=== PATIENT | male | born 1990 | race Hispanic/Latino ===

== ENCOUNTER 2022-05-12 11:56 | Emergency (ER) | payer OTHER, SELFPAY ==
--- NOTE | ~2022-05-12 | XR_ITS ---
XR hand RT min 3V DATE: 05/12/2022 12:46 INDICATION: Hand smashed in car door TECHNIQUE: 3 views COMPARISON: None FINDINGS: Old healed fracture deformities of the proximal fourth and fifth metacarpal bones. No recent fracture or dislocation, periosteal reaction or bone destruction. IMPRESSION: No recent fracture or dislocation Reviewed, dictated and finalized at location B.
--- NOTE | ~2022-05-12 | XR_ITS ---
XR hand LT min 3V DATE: 05/12/2022 12:46 INDICATION: Hand smashed in car door TECHNIQUE: 3 views of left hand COMPARISON: None FINDINGS: No fracture or dislocation, periosteal reaction or bone destruction. Joint spaces are prese rved. IMPRESSION: Negative Reviewed, dictated and finalized at location B. IMPRESSION: Negative
--- NOTE | 2022-05-12 12:21 | ED.UPPEXIN ---
HPI - Extremity Injury (Upper) General Chief Complaint: Extremity Injury, Upper Stated Complaint: cut left 3rd finger/right hand injury Time Seen by Provider: 05/12/22 12:21 Source: patient and american sign language interpreter Mode of arrival: ambulatory Limitations: no limitations History of Present Illness HPI narrative: Brian is a 32-year-old male patient presenting to the clinic today with complaints of a bilateral hand pain with a cut to his left 3rd finger. He reports he will was hit by a door as it was opening injuring his bilateral hands. Reports more pain to the right hand however he has a cut to the left 3rd finger that is bleeding. Tetanus shot is of today as patient had 6 months ago Related Data Home Medications Medication Instructions Recorded Confirmed No Home Medications 05/12/22 05/12/22 Allergies Allergy/AdvReac Type Severity Reaction Status Date / Time No Known Allergies Allergy Verified 05/12/22 12:29 Review of Systems Review of Systems: Pertinent positives per HPI. Patient denies any fever, chills, rash, headache, visual changes, dizziness, cough, runny nose, sore throat, shortness of breath, chest pain, palpitations, nausea, vomiting, diarrhea, constipation, abdominal pain, or any urinary issues. PMFSH Comments At the time of my signature, I reviewed and agree with the nursing past medical, surgical, social, and family history. There is no relevant family history pertinent to the patient complaint. Exam Narrative: General: Well-developed, well nourished, in no apparent distress Head: Normocephalic, atraumatic. Cardio: Regular rate and rhythm, s1 and s2 normal, no murmur appreciated. Resp: Clear to auscultation bilaterally, no rhonchi, rales, wheezing or rubs. Musculoskeletal: No deformity, skin abrasion to the left 3rd dorsal proximal phalanx, tender to palpation over the left 3rd joint in the dorsal hand and over the dorsal right hand, limited range of motion due to pain, muscle strength strong and equal, peripheral pulse strong, no edema, no cyanosis, normal gait and station Course Course Emergency Course: Portions of this record may have been created with voice recognition software. Level of Care: Express Care Visit Vital Signs Vital signs: Vital Signs Temperature 36.6 C 05/12/22 12:28 Pulse Rate 72 05/12/22 12:28 Respiratory Rate 14 05/12/22 12:28 Blood Pressure 123/63 05/12/22 12:28 Pulse Oximetry 100 05/12/22 12:28 Oxygen Delivery Room Air 05/12/22 12:28 Temperature 36.6 C 05/12/22 12:28 Pulse Rate 72 05/12/22 12:28 Respiratory Rate 14 05/12/22 12:28 Blood Pressure 123/63 05/12/22 12:28 Pulse Oximetry 100 05/12/22 12:28 Oxygen Delivery Room Air 05/12/22 12:28 Vital signs reviewed MDM - Extremity Injury (Upper) MDM Narrative Medical decision making narrative: At the time of visit patient is resting comfortably on exam table. X-rays were completed of bilateral hands and were negative for any sign of acute fracture or malalignment. I suspect patient has soft tissue injury with a abrasion to the left 3rd dorsal proximal finger. Supportive measures were discussed with the patient he voiced understanding discharge instructions and agrees to treatment plan. Differential Diagnosis Differential diagnosis: Likely finger sprain, dislocation of finger, fracture of hand and other (Soft tissue injury, left 3rd finger abrasion) Discharge Plan Discharge Clinical Impression: Soft tissue injury, Abrasion of skin of finger of left hand Patient Disposition: Home, Self-Care Condition: Stable Instructions: Antibiotic Form, Hand Sprain (ED), Abrasion (ED) Additional Instructions: Mantener la herida limpia y seca Puede aplicar un cullen?ento antibi?breanne triple a la herida dos veces al d?a x 2-3 d?as. Puede mantenerse cubierto con curitas x 2 d?as y luego dejarse al aire kelsey a menos que est? drenando Las radiograf?as de eran bilaterales fueron negativa
[2022-05-12 12:28] VITALS: BP 123/63; PULSE 72; RESP 14; TEMP 36.6; O2SAT 100
[2022-05-12] MEDS: KETOROLAC (*BKC) 60 MG/2 ML VIAL IM (13:14)
--- NOTE | 2022-05-12 13:17 | PC.NURSE ---
1315- rn document improvement specialist César [id number]
== END 2022-05-12 13:28 | disposition home or self-care (01) ==
PROVIDERS: Emergency Provider Nurse Practitioner Family
DX: S60.413A Abrasion of left middle finger, initial encounter (principal); S69.91XA Unspecified injury of right wrist, hand and finger(s), initial encounter; S69.92XA Unspecified injury of left wrist, hand and finger(s), initial encounter; V48.3XXA Unspecified car occupant injured in noncollision transport accident in nontraffic accident, initial encounter
CPT/HCPCS: 73130; 96372; 99204; G0463; J1885

== ENCOUNTER 2022-05-15 12:33 | Emergency (ER) | payer OTHER, SELFPAY ==
[2022-05-15 12:37] VITALS: BP 130/66; PULSE 90; RESP 18; TEMP 36.8; O2SAT 99
--- NOTE | 2022-05-15 13:19 | ED.UPPEXIN ---
HPI - Extremity Injury (Upper) General Chief Complaint: Extremity Injury, Upper Stated Complaint: re-check Time Seen by Provider: 05/15/22 12:47 History of Present Illness HPI narrative: 32-year-old Guamanian-speaking male presents to the emergency room for reevaluation of bilateral hand pain. Patient is accompanied by family member who is acting as diplomatic interpreter. Patient states that several days ago at work he was holding onto a door when a coworker pushed the door closed slamming the door onto his hands. Patient is complaining of pain to the dorsal side of his right and left hand. Patient was seen in urgent care following the incident, and had x-rays obtained. X-ray showed no fractures. Patient was sent home with both of his hands and Alberto bandages. Today states the pain has not improved. Related Data Allergies Allergy/AdvReac Type Severity Reaction Status Date / Time No Known Allergies Allergy Verified 05/15/22 12:42 Review of Systems Review of Systems: CONSTITUTIONAL: Denies fever, chills, or sweats. EYES: Denies visual changes, redness, or discharge. ENT: Denies rhinorrhea, congestion, sore throat, or otalgia. CARDIOVASCULAR: Denies chest pain, palpitations, or edema. RESPIRATORY: Denies cough or dyspnea. GASTROINTESTINAL: Denies abdominal pain, nausea, vomiting, or diarrhea. GENITOURINARY: Denies dysuria or hematuria. SKIN: Denies rash or itching. MUSCULOSKELETAL: Reports bilateral hand pain NEUROLOGIC: Denies headache, numbness, dizziness, or weakness. PSYCHIATRIC: Denies anxiety or depression. Exam Narrative: GENERAL: Well-appearing, well-nourished, no physical limitations, and in no acute distress. HEAD: Normocephalic, atraumatic. EYES: Conjunctivae normal, PERRLA and EOMI. CHEST: Clear to auscultation. No respiratory distress. No wheezes rales or rhonchi. HEART: Regular rate and rhythm. No murmur heard. Normal peripheral pulses. EXTREMITIES: right hand: +TTP and STS over the 4th-5th metacarpals, LROM, neurovascular is intact distally. Left hand: +TTP with no STS over the 3rd metacarpal, FROM, neurovascular is intact distally SKIN: Warm, dry, no rash. No noted wounds NEURO: No focal deficits. Alert and oriented x3. MAEW. CN's II-XI intact bilaterally, normal gait PSYCH: Cooperative. Normal mood and affect. Course Vital Signs Vital signs: Vital Signs Temperature 36.8 C 05/15/22 12:37 Pulse Rate 90 05/15/22 12:37 Respiratory Rate 18 05/15/22 12:37 Blood Pressure 130/66 05/15/22 12:37 Pulse Oximetry 99 05/15/22 12:37 Temperature 36.8 C 05/15/22 12:37 Pulse Rate 90 05/15/22 12:37 Respiratory Rate 18 05/15/22 12:37 Blood Pressure 130/66 05/15/22 12:37 Pulse Oximetry 99 05/15/22 12:37 Discharge Plan Discharge Clinical Impression: Contusion of hand, right, Contusion of hand, left Patient Disposition: Home, Self-Care Condition: Stable Instructions: Antibiotic Form, Contusion in Adults (ED) Prescriptions: New celecoxib [Celebrex] 200 mg capsule 200 mg PO BID Qty: 20 0RF Follow-up/Referrals: Milind Wilkins MD [Physician] - UNKNOWN,DOCTOR [Primary Care Provider] - Stand Alone Forms: Work/School Release IP Time of Disposition: 13:23
== END 2022-05-15 13:37 | disposition home or self-care (01) ==
PROVIDERS: Emergency Provider Nurse Practitioner Family
DX: S60.221A Contusion of right hand, initial encounter (principal); S60.222A Contusion of left hand, initial encounter; W23.2XXA Caught, crushed, jammed or pinched between a moving and stationary object, initial encounter
CPT/HCPCS: 99283

== ENCOUNTER 2022-06-09 12:20 | Outpatient (CLI) | payer OTHER, SELFPAY ==
--- NOTE | ~2022-06-09 | XR_ITS ---
XR wrist RT min 3V DATE: 06/09/2022 12:50 INDICATION: Wrist pain TECHNIQUE: 4 views COMPARISON: 05/12/2022 right-handed FINDINGS: Old healed fracture deformities of the bases of the fourth and fifth metatarsal carpal bone s again noted. No recent fracture or dislocation of the right wrist. Wrist joint spaces appear well preserved. No er osive change or chondrocalcinosis. IMPRESSION: No significant abnormality right wrist Old healed fracture deformities of the bases of the fourth and fifth metacarpal bones Reviewed, dictated and finalized at location B.
== END 2022-06-09 12:21 | disposition home or self-care (01) ==
PROVIDERS: Visit Provider Plastic Surgery
DX: M25.531 Pain in right wrist (principal)
CPT/HCPCS: 73110

== ENCOUNTER 2022-08-18 11:00 | Outpatient (RCR) | payer OTHER, SELFPAY ==
--- NOTE | 2022-06-16 13:42 | OTOPEVAL1 ---
Assessment and note entered by Curt Santa, MARIO ALBERTO/Yosi, CHT Evaluation Information Assessment Status Evaluation Diagnosis Right hand contusion Onset 05/13/22 Subjective Information Patient reporting arm/hand pain that occurred after a sliding door was accidently closed on his hand. He states he has been trying to move his hand and squeeze a ball and this has helped his hand pain some. Reporting most of his pain is located at the lateral elbow. He frequently drops items with this arm and has difficulties with gripping. He works at a [employer] yard, cleaning out cars; manual labor. Patient here today with his friend, Bert, who interprets for him as he is Pashto speaking. Offered interpretation services and he declined. Reported Pain Level Pain Score 4: Self Report Additional Pain Score Comments Patient reporting 4/10 pain at rest. He states he does get up to 10/10 at times. The pain starts in the elbow and radiates down to the hand. Assessment OT Clinical Summary Patient referred to outpatient OT with dx of right hand contusion after a door closed on his hand. He has residual pain which is causing him to drop items and the pain limits his functional use during ADLs. Testing today revealing pain and inflammation of the dorsal hand, lateral epicondyle, radial tunnel. (+) Radial nerve tension test on the right. Applied hot pack to the patient's arm and instructed in ROM HEP and he reports much improved flexibility and less pain following heat treatment. Plan moving forward - Patient to complete this HEP x1 week and will have him follow up next , 06/24, to assess readiness for discharge and ultimately readiness to return to work. Plan of Care Interventions Therapeutic Exercise,Manual Therapy,Therapeutic Activities,Hot Pack/Cold Pack,Ultrasound,Paraffin OT Services Indicated Yes Treatment Frequency and 1x/week for 3 weeks Duration These treatments will address the objective and functional deficits as defined above. The patient will be advanced safely and appropriately in order for the patient to progress towards his/her prior level of function. Additional exercises will be introduced and as well as a comprehensive home exercise program upon discharge, if needed, ?to ensure carryover of functional gains achieved in the clinic. This treatment plan has been reviewed and agreement upon by the patient.
--- NOTE | 2022-07-05 12:23 | OTOPPROG ---
Assessment and note entered by Curt Santa, MARIO ALBERTO/Yosi, CHT Evaluation Information Assessment Status Progress Diagnosis Right hand contusion Onset 05/13/22 Subjective Information Patient reporting arm/hand pain that occurred after a door was accidently closed on his hand. Initially he was reporting most of his pain is located at the lateral elbow. He received a cortisone injection here last Tuesday and he states his elbow no longer is painful. He reports 8/10 pain in the hand. Palpation of the hand there is a bony prominence at the base of metacarpals IV and V. With weight bearing through a flat hand and extended wrist he reports sharp increase in pain in this area. He has difficulties trying to adduct the small finger. We have been completing right elbow, forearm, and wrist ROM and shovel loader operator strengthening with putty. He is compliant with all materials. He reports no changes in the functional use of the arm. So far the only progress is reduced pain in the elbow, which he attributes this to the cortisone injection. He works at a [employer] yard, cleaning out cars; manual labor. Off work until his next MD appt on 07/20. Patient here today with his friend, Bert, who interprets for him as he is Armenian speaking. Offered interpretation services and he declined. Assessment OT Clinical Summary Patient referred to outpatient OT with dx of right hand contusion after a door closed on his hand. He has residual hand pain which is causing him to drop items and the pain limits his functional use during ADLs. Progress noted with reduced pain in the elbow. He is reporting pain just localized to the right hand, points to the base of metacarpals IV and V. He is having difficulty tolerating gripping items and especially with weight bearing through that hand. Will continue to see the patient to treat pain and to facilitate optimal functional use of the right UE. Plan of Care Interventions Therapeutic Exercise,Manual Therapy,Therapeutic Activities,Hot Pack/Cold Pack,Ultrasound,Paraffin OT Services Indicated Yes Treatment Frequency and 1x/week for 3 weeks Duration These treatments will address the objective and functional deficits as defined above. The patient will be advanced safely and appropriately in order for the patient to progress towards h
--- NOTE | 2022-07-29 10:19 | OTOPPROG ---
Assessment and note entered by Curt Santa, MARIO ALBERTO/Yosi, CHT Evaluation Information Assessment Status Progress Diagnosis Right hand contusion Onset 05/13/22 Subjective Information Patient reporting arm/hand pain that occurred after a door was accidently closed on his hand. He continues to report 9/10 regularly. He reports his hand is located on the dorsum of the hand and radiates up to the lateral elbow and now is reporting pain all the way up to the shoulder. He reports his pain can get down to 1/10 when he takes ibuprofen, but he only takes this at night as he doesn't want to take pills all the time . He is using heat and ice at home for pain relief also. He is compliant with with ROM exercises and using the putty. He comes in today wearing a wrist cock up brace that he's been wearing for ~4 days. He states this has helped with the pain also. Severe 10/10 pain with resisted wrist extension. He is able to move the UE through normal ROM, but reporting pain through the entire extensor unit on the dorsum of the hand to the elbow. Patient here today with his friend, Bert, who interprets for him as he is Croatian speaking. Offered interpretation services and he declined. Assessment OT Clinical Summary Patient referred to outpatient OT with dx of right hand contusion after a door closed on his hand. He has residual hand pain which is causing him to drop items and the pain limits his functional use during ADLs. This pain continues to radiate up to the elbow and he is now reporting intermittent pain all the way up to the shoulder. Home program includes postural exercises/stretches, ROM of all joints of the right UE, and putty HEP. Pain management at home includes massage and use of heat/ice. He has been immobilizing the wrist for a few days also. Progress noted with reduced pain when completing ROM. Will continue to see the patient to treat pain and to facilitate optimal functional use of the right UE. Plan of Care Interventions Therapeutic Exercise,Manual Therapy,Therapeutic Activities,Hot Pack/Cold Pack,Ultrasound,Paraffin OT Services Indicated Yes Treatment Frequency and 1x/week for 3 weeks Duration These treatments will address the objective and functional deficits as defined above. The patient will b
--- NOTE | 2022-08-18 12:41 | OTOPPROG ---
Assessment and note entered by Curt Santa, MARIO ALBERTO/Yosi, CHT Evaluation Information Assessment Status Progress Diagnosis Right hand contusion Onset 05/13/22 Subjective Information Patient reporting arm/hand pain that occurred after a sliding door was accidently closed on his hand. He reports his pain is located on the dorsum of the hand and radiates up to the lateral elbow and all the way up to the shoulder. He does report reduced pain, as low as 0-1/10 after therapy sessions. He is using heat and ice at home for pain relief. He is compliant with with ROM exercises and using the putty. He is reporting improved UE use with lifting. For instance, today he was able to lift 20 lb. box from floor to table height and back to the floor for several reps. He states he is using that hand at home to do some strengthening with a 3 lb. dumbbell. He is using his hand to use his phone now. He did not have a sharp increase in pain with resisted wrist extension today. He is able to move the UE through normal ROM. Upper limb tension test for the radial nerve is positive, but overall he is moving through more ROM and not needing to stop due to pain. 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 Patient here today with his friend, Bert, who interprets for him as he is Bermudian speaking. Offered interpretation services and he declined. Assessment OT Clinical Summary Patient referred to outpatient OT with dx of right hand contusion after a door closed on his hand. He has residual UE pain which limits his functional use with gripping and lifting. This pain continues to radiate up to the elbow and he is now reporting intermittent pain all the way up to the shoulder. Home program includes postural exercises/stretches, ROM of all joints of the right UE, and putty HEP. Pain management at home includes massage and use of heat/ice. Progress noted with reduced pain and improved functional use. He continues to be limited with use, however, due to residual pain and weakness. Continued skilled OT indicated to continue to facilitate reduced pain and improved functional strength. Plan of Care Interventions Therapeutic Exercise,Manual Therapy,Therapeutic Activities,Hot Pack/
--- NOTE | 2022-09-02 08:50 | PCOTNOTE ---
Patient did not show up for scheduled appointment this date. Called patient's friend/staff interpreter and left a voicemail regarding the missed appointment and asked that they call back to let me know if they'll be making the appointment on the . Per Dr. Wilkins's last note, the patient was released to go back to work.
--- NOTE | 2022-09-07 09:45 | OTOPDC ---
Assessment and note entered by Curt Santa, OTR/L, CHT Discharge Note 09/07/22 OT Clinical Summary Zhang has not returned for therapy appointments since his most recent reassessment on 08/18/22. We have been unable to get a hold of him. Please refer to progress note dated 08/18/22 for latest update on patient's progress. Discharging today from therapy.
== END 2022-09-07 12:52 | disposition home or self-care (01) ==
LOC: ANHOT 11:00
PROVIDERS: Visit Provider Plastic Surgery
DX: S60.221D Contusion of right hand, subsequent encounter (principal)
CPT/HCPCS: 97018; 97035; 97110; 97140; 97166; 99199

== ENCOUNTER 2022-08-26 09:09 | Outpatient (CLI) | payer OTHER, SELFPAY ==
--- NOTE | 2022-08-26 11:00 | NEURO_ITS ---
Impression: # Complains of pain on the dorsum of hand. # No Carpal Tunnel Syndrome or ulnar neuropathy. # Needle/EMG exam not requested. # Clinical correlation recommended. Nerve Conduction Studies Anti Sensory Summary Table Stim Site NR Peak (ms) P-T Amp (?V) Site1 Site2 Delta-P (ms) Dist (cm) Prieto (m/s) Right Median Anti Sensory (2-3nd Digit) Wrist 2.7 40.9 Wrist 2-3nd Digit 2.7 14.0 52 Wrist 2.6 33.4 Wrist 2-3nd Digit 2.7 14.0 52 Right Radial Anti Sensory (Base 1st Digit) Wrist 2.1 23.2 Wrist Base 1st Digit 2.1 0.0 Right Ulnar Anti Sensory (5th Digit) Wrist 2.4 39.3 Wrist 5th Digit 2.4 14.0 58 Motor Summary Table Stim Site NR Onset (ms) O-P Amp (mV) Site1 Site2 Delta-0 (ms) Dist (cm) Prieto (m/s) Right Median Motor (Abd Poll Brev) Wrist 2.9 4.0 Elbow Wrist 6.0 30.0 50 Elbow 8.9 1.5 Right Ulnar Motor (Abd Dig Minimi) Wrist 2.5 5.0 A Elbow Wrist 5.1 29.0 57 A Elbow 7.6 3.5 F Wave Studies NR F-Lat (ms) L-R F-Lat (ms) Right Median (Mrkrs) (Abd Poll Brev) 28.97 Right Ulnar (Mrkrs) (Abd Dig Min) 27.60 MTDD
--- NOTE | 2022-08-26 14:15 | NEURO_ITS ---
Impression: # Complains of pain in right hand dorsum. # No Carpal Tunnel Syndrome or ulnar neuropathy. # Needle/EMG exam not requested. # Clinical correlation recommended. MTDD
== END 2022-08-26 09:10 | disposition home or self-care (01) ==
LOC: ANHNEURO 09:11
PROVIDERS: Visit Provider Plastic Surgery
DX: R20.2 Paresthesia of skin (principal)
CPT/HCPCS: 95909

== ENCOUNTER 2022-09-22 09:45 | Outpatient (RCR) | payer OTHER, SELFPAY ==
--- NOTE | 2022-09-17 11:51 | OTOPEVAL1 ---
Assessment and note entered by Curt Santa, OTR/L, CHT Evaluation Information Assessment Status Evaluation Diagnosis (R) hand contusion Onset 05/13/22 Subjective Information Patient has been experiencing right UE pain when his hand was closed in a door. He has been working with therapy since the end of May. We have made progress with functional ROM and strength, however he continues to have severe amounts of pain with UE use. He has been back at work, working 1/2 days. After working his pain increases to 15 to 20/10 . 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 He did receive an injection to the lateral epicondyle at his recent appointment 09/10. His doctor at work dishcharged him to return to full duty also. He occasionally takes ibuprofen for the pain and does experience 0 /10 pain when doing this, but with any arm use the pain increases. Reported Pain Level Pain Score 8: Self Report Assessment OT Clinical Summary Patient presents for continuation of care for right arm pain. Since beginning treatment in May , the patient has made progress with reduced pain and improved functional use, however he continues to report high amounts of pain when trying to use his arm for any strenuous tasks. The pain is localized to the lateral elbow/forearm and appears to be consistent with lateral epicondylitis. He also has (+) radial nerve tension test. Skilled OT indicated for use of modalities, manual therapy, exercise, and HEP instruction to facilitate optimal functional use of the right UE. Plan of Care Interventions Therapeutic Exercise,Manual Therapy,Therapeutic Activities,Hot Pack/Cold Pack,Paraffin OT Services Indicated Yes Treatment Frequency and 1x/week for 4 weeks Duration These treatments will address the objective and functional deficits as defined above. The patient will be advanced safely and appropriately in order for the patient to progress towards his/her prior level of function. Additional exercises will be introduced and as well as a comprehensive home exercise program upon discharge, if needed, ?to ensure carryover of functional gains achieved in the clinic. This treatment plan has been reviewed and agreement upon by the patient.
--- NOTE | 2022-09-17 11:51 | OPREHPOC ---
Outpatient Therapy Plan of Care This is a Multidisciplinary Plan of Care that may contain components documented by all disciplines (PT, OT, and ST.) OT Problem 1 OT Problem #1 Knowledge Deficit OT Goal 1 Goal 1. Patient to be independent with instructed materials. Target Visit 5 OT Problem 2 OT Problem #2 Pain OT Goal 1 Goal 1. Patient to report reduced pain in the right UE, as evidenced by being able to complete work tasks with pain less than 4/10. Target Visit 5 OT Problem 3 OT Problem #3 Impaired Flexibility OT Goal 1 Goal 1. Demonstrate improved functional flexibility of the right UE by being able to complete passive ROM of the right wrist with the elbow extended with no pain. Target Visit 5
--- NOTE | 2022-10-19 11:52 | OTOPDC ---
Assessment and note entered by Curt Santa, OTR/L, CHT Discharge 10/19/22 OT Clinical Summary Patient has not returned for further treatment since 09/22/22 due to insurance beginning to deny therapy coverage. Discharging with goals not met.
== END 2022-10-19 12:50 | disposition home or self-care (01) ==
LOC: ANHOT 09:45
PROVIDERS: Visit Provider Plastic Surgery
DX: M79.631 Pain in right forearm (principal)
CPT/HCPCS: 97018; 97110; 97140; 97150; 97165